=== PATIENT | female | born 1985 | race Caucasian/White ===

== ENCOUNTER 2020-01-28 17:03 | Inpatient (IN) | payer OTHER ==
[~2020-01-28] VITALS: Ht 165.1 cm; Wt 58.5 kg
[2020-01-28 17:04] VITALS: BP 155/98
[2020-01-28] MEDS ORDERED: NACL 0.9% 1,000 ML IV SCH (17:07)
[2020-01-28] MEDS ORDERED: ACETAMINOPHEN 325 MG TAB PO ONE (17:10)
[2020-01-28] MEDS ORDERED: LEVOFLOXACIN 500 MG/D5W PREMIX 100 ML IV ONE (17:10)
[2020-01-28 17:54] LABS: BASOPHILS # (AUTO) 0.1 K/uL (0.00-0.22); BASOPHILS % (AUTO) 0.9 % (0.0-2.0); EOSINOPHILS % (AUTO) 0.2 % (0.0-4.0); HEMATOCRIT 30.1 % (36-48); HEMOGLOBIN 9.8 g/dL (12.0-16.0); LYMPHOCYTES # (AUTO) 1.3 K/uL (2.5-16.5); LYMPHOCYTES % (AUTO) 11.6 % (20.5-51.1); MEAN CORPUSCULAR HEMOGLOBIN 28 pg (27-31); MEAN CORPUSCULAR HGB CONC 33 g/dL (33-37); MEAN CORPUSCULAR VOLUME 86.7 fL (80-94); MONOCYTES # (AUTO) 0.7 K/uL (0.8-1.0); MONOCYTES % (AUTO) 6.2 % (1.7-9.3); NEUTROPHILS # (AUTO) 9.1 K/uL (1.8-7.7); NEUTROPHILS % (AUTO) 81.1 % (42.2-75.2); PLATELET COUNT (AUTO) 465 K/uL (140-450); RED BLOOD CELL COUNT(AUTO) 3.47 MIL/uL (4.20-5.40); RED CELL DISTRIBUTION WIDTH 14.2 % (11.6-13.7); WHITE BLOOD COUNT (AUTO) 11.2 K/uL (4.8-10.8)
[2020-01-28 17:58] LABS: APPEARANCE,URINE SL CLOUDY (CLEAR); BILIRUBIN,URINE NEGATIVE (NEGATIVE); BLOOD, URINE 1+ (NEGATIVE); COLOR,URINE YELLOW (YELLOW); LEUKOCYTE ESTERASE ,URINE NEGATIVE (NEGATIVE); NITRITE, URINE NEGATIVE (NEGATIVE); PH,URINE 5.5 (5.0-9.0); UGLUCOSE 3+ (NEGATIVE)
[2020-01-28 18:05] LABS: PROTHROMBIN TIME 11.1 secs (10.8-13.4)
[2020-01-28 18:13] LABS: RBC,URINE 0-5 /HPF (0-5); WBC,URINE 16-25 (MOD) /HPF (0-5)
[2020-01-28 18:18] LABS: ANION GAP 12.5 (8-16); CARBON DIOXIDE 28.3 mmol/L (21-32); CREATININE 0.9 mg/dL (0.6-1.3); POTASSIUM 3.8 mmol/L (3.5-5.1); TOTAL BILIRUBIN 0.4 mg/dL (0.0-1.0)
[2020-01-28] MEDS ORDERED: KETOROLAC 30 MG/ML VIAL IVP ONE (18:20)
[2020-01-28] MEDS ORDERED: NACL 0.9% 1,000 ML IV ONE (18:20)
[2020-01-28 18:23] LABS: LACTATE DEHYDROGENASE 191 U/L (81-234)
[2020-01-28] MEDS ORDERED: METF1000 PO (18:50)
[2020-01-28] MEDS ORDERED: GABA300C PO (18:50)
[2020-01-28] MEDS ORDERED: TRAM50TA1 PO (18:50)
[2020-01-28] MEDS ORDERED: GLIP10TA3 PO (18:50)
[2020-01-28] MEDS ORDERED: ZOLPIDEM 5 MG TAB PO PRN (22:20)
[2020-01-28] MEDS ORDERED: guaiFENesin DM 200/20 MG-10 ML 10 ML UDC PO PRN (22:20)
[2020-01-28] MEDS ORDERED: ONDANSETRON 4 MG/2 ML VIAL IVP PRN (22:20)
[2020-01-28] MEDS ORDERED: ACETAMINOPHEN 650 MG SUPP RC PRN (22:20)
[2020-01-28] MEDS ORDERED: MAGNESIUM OXIDE 400 MG TAB PO PRN (22:20)
[2020-01-28] MEDS ORDERED: POTASSIUM CHLORIDE 10 MEQ TABER PO PRN (22:20)
[2020-01-28] MEDS ORDERED: ACETAMINOPHEN 325 MG TAB PO PRN (22:20)
[2020-01-28] MEDS ORDERED: AZITHROMYCIN 500 MG in DEXTROSE 5% 250 ML IV SCH (22:20)
[2020-01-28] MEDS ORDERED: AZITHROMYCIN 500 MG INJ VIAL IV ONE (22:48)
[2020-01-29] VITALS: BP 129/79
[2020-01-29 04:00] VITALS: BP 129/70
[2020-01-29] MEDS ORDERED: LORazepam 2 MG/ML VIAL IM/IVP PRN (04:35)
[2020-01-29] MEDS ORDERED: guaiFENesin/CODEINE 100/10MG 5 ML UDC PO PRN (04:35)
[2020-01-29] MEDS ORDERED: DEXTROSE 50% 50 ML SYR IVP PRN (04:35)
[2020-01-29] MEDS ORDERED: ALBUTEROL HFA MDI 90 MCG/ACTUATION 8 GM INH PRN (04:40)
[2020-01-29 06:06] LABS: BASOPHILS % (AUTO) 0.3 % (0.0-2.0); EOSINOPHILS % (AUTO) 0.3 % (0.0-4.0); HEMATOCRIT 30.8 % (36-48); LYMPHOCYTES % (AUTO) 9.3 % (20.5-51.1); MEAN CORPUSCULAR HEMOGLOBIN 28 pg (27-31); MEAN CORPUSCULAR HGB CONC 33 g/dL (33-37); MEAN CORPUSCULAR VOLUME 86.7 fL (80-94); MONOCYTES # (AUTO) 0.6 K/uL (0.8-1.0); MONOCYTES % (AUTO) 5.1 % (1.7-9.3); NEUTROPHILS # (AUTO) 9.4 K/uL (1.8-7.7); PLATELET COUNT (AUTO) 469 K/uL (140-450); RED BLOOD CELL COUNT(AUTO) 3.55 MIL/uL (4.20-5.40); RED CELL DISTRIBUTION WIDTH 14.3 % (11.6-13.7); WHITE BLOOD COUNT (AUTO) 11.1 K/uL (4.8-10.8)
[2020-01-29] MEDS: BLOOD GLUCOSE MONITORING 1 DEV DEV FS SCH ×2 (06:19→12:02)
[2020-01-29] MEDS: INSULIN LISPRO SLIDING SCALE 100 UNITS/ML VIAL SUBQ PRN ×2 (06:20→12:05)
[2020-01-29 06:32] LABS: ALBUMIN 1.9 g/dL (3.4-5.0); ANION GAP 11.5 (8-16); CARBON DIOXIDE 29.6 mmol/L (21-32); CREATININE 0.8 mg/dL (0.6-1.3); MAGNESIUM 1.6 mg/dL (1.8-2.4); POTASSIUM 4.1 mmol/L (3.5-5.1); TOTAL BILIRUBIN 0.5 mg/dL (0.0-1.0)
[2020-01-29 08:00] VITALS: BP 104/62
[2020-01-29] MEDS ORDERED: traMADol 50 MG TAB PO PRN (10:40)
[2020-01-29] MEDS ORDERED: LEVO750T2 PO (10:45)
[2020-01-29] MEDS ORDERED: LACT1CAP81 PO (10:45)
[2020-01-29 12:00] VITALS: BP 120/66
[2020-01-29 13:06] LABS: C-REACTIVE PROTEIN QUANT 45.6 mg/dL (0.0-0.9)
[2020-01-29] MEDS ORDERED: glipiZIDE 10 MG TAB PO SCH (17:00)
[2020-01-29] MEDS ORDERED: GABAPENTIN 300 MG CAP PO SCH (21:00)
[2020-01-30] MEDS ORDERED: ENOXAPARIN 40 MG/0.4 ML SYR SUBQ SCH (09:00)
== END 2020-01-29 12:35 | disposition home or self-care (01) | DRG 720 ==
LOC: MED 17:03 → EEVIPCON 19:54 → MMU 19:54 → MTU 01-29 09:48
PROVIDERS: ADMIT Hospitalist; ATTEND Hospitalist
DX: A41.9 Sepsis, unspecified organism (principal); E11.40 Type 2 diabetes mellitus with diabetic neuropathy, unspecified; Z03.818 Encounter for observation for suspected exposure to other biological agents ruled out; E11.65 Type 2 diabetes mellitus with hyperglycemia; D64.9 Anemia, unspecified; E83.42 Hypomagnesemia; E87.1 Hypo-osmolality and hyponatremia; E44.1 Mild protein-calorie malnutrition; Z79.899 Other long term (current) drug therapy; Z79.84 Long term (current) use of oral hypoglycemic drugs; Z68.21 Body mass index [BMI] 21.0-21.9, adult; N39.0 Urinary tract infection, site not specified; B96.1 Klebsiella pneumoniae [K. pneumoniae] as the cause of diseases classified elsewhere; B96.20 Unspecified Escherichia coli [E. coli] as the cause of diseases classified elsewhere
CPT/HCPCS: 36415; 36600; 71045; 80053; 81001; 82550; 82728; 82803; 82948; 83605; 83615; 83735; 83880; 84484; 85025; 85610; 85730; 86140; 87040; 87081; 87086; 87186; 87804; 93005; 96361; 96365; 96375; 99291; J0456; J1885; J1956; J7030; J7060; U0002

== ENCOUNTER 2020-11-03 22:13 | Emergency (ER) | payer OTHER, SELFPAY ==
[~2020-11-03] VITALS: Ht 165.1 cm; Wt 59.0 kg
[~2020-11-03 22:13] MED LIST: GABA300C PO; GLIP10TA3 PO; LACT1CAP81 PO; LEVO750T2 PO; TRAM50TA1 PO
[2020-11-03 23:30] VITALS: BP 129/89
[2020-11-04 00:06] VITALS: BP 126/89
--- NOTE | 2020-11-04 00:06 | NUR ---
vaginal pain x yesterday. 08/07 pain pt says "i dont if its a boil, abscess but its the size of a soft ball." describes it as pressure and hurts to sit. + BLOOD RED DRAINAGE. NKDA. PMH: DM, ANEMIC, ASTHMA, C/S.
--- NOTE | 2020-11-04 00:10 | NUR ---
PT W/C ASSIST TO ZOIE.
[2020-11-04] MEDS ORDERED: KETOROLAC 60 MG/2 ML VIAL IM ONE (00:55)
--- NOTE | 2020-11-04 02:31 | NUR ---
Female Terminologist accompanied female patient for Pelvic Exam in triage. Pt Tolerated procedure well.
[2020-11-04 02:37] VITALS: BP 126/89
--- NOTE | 2020-11-04 02:37 | NUR ---
Patient discharged with v/s stable. Written and verbal after care instructions given and explained. Patient alert, oriented and verbalized understanding of instructions. Ambulatory with steady gait. All questions addressed prior to discharge. ID band removed. Patient advised to follow up with PMD. Rx of MOTRIN, NORCO, AND KEFLEX given. Patient educated on indication of medication including possible reaction and side effects. Opportunity to ask questions provided and answered.
== END 2020-11-04 02:39 | disposition home or self-care (01) ==
LOC: MED 22:13
DX: L02.214 Cutaneous abscess of groin (principal); N39.0 Urinary tract infection, site not specified; J45.909 Unspecified asthma, uncomplicated; E11.9 Type 2 diabetes mellitus without complications; D64.9 Anemia, unspecified; Z79.899 Other long term (current) drug therapy; Z79.84 Long term (current) use of oral hypoglycemic drugs
CPT/HCPCS: 81002; 81025; 96372; 99283; J1885

== ENCOUNTER 2021-05-05 10:15 | Inpatient (IN) | payer OTHER, SELFPAY ==
[~2021-05-05] VITALS: Ht 165.1 cm; Wt 59.0 kg
--- NOTE | 2021-05-05 | NUR ---
VITAL SIGNS WITHIN NORMAL LIMIT. PATIENT IS RESTING, USING HER CELLPHONE. NO SIGN OF DISTRESS NOTED. PATIENT REPORTS REDUCE TO TOLERABLE LEVEL AT THIS TIME. CALL LIGHT WITHIN REACH. WILL CONTINUE TO MONITOR. Addendum: 05/06/21 at 0105 by Troy Corona RN RN DOCUMENT AT 05/06/21 0000
[2021-05-05 10:43] VITALS: BP 122/73
--- NOTE | 2021-05-05 10:49 | NUR ---
Patient transferred to bed 7 via wheelchair by tech. RN evaluating the patient at bedside.
--- NOTE | 2021-05-05 10:57 | NUR ---
35/F C/O GENERALIZED WEAKNESS, N/V/D, BODY ACHE SINCE LAST NIGHT. PT DENIES ABDOMINAL PAIN OR DYSURIA. ABDOMEN IS SOFT AND NON-TENDER UPON INSPECTION. BLOOD SUGAR 427 UPON TRIAGE. PMH: NEUROPATHY, DM, C SECTION
[2021-05-05] MEDS ORDERED: NACL 0.9% 1,000 ML IV ONE ×2 (11:20→12:10)
[2021-05-05] MEDS ORDERED: MORPHINE SULFATE 4 MG/ML SYR IVP ONE (11:20)
[2021-05-05] MEDS ORDERED: KETOROLAC 30 MG/ML VIAL IVP ONE (11:20)
[2021-05-05] MEDS ORDERED: ONDANSETRON 4 MG/2 ML VIAL IVP ONE (11:20)
--- NOTE | 2021-05-05 11:38 | NUR ---
BLOOD DRAW DURING IV START. BLOOD SAMPLE SENT TO LAB.
[2021-05-05 11:44] LABS: BASOPHILS # (AUTO) 0.1 K/uL (0.00-0.22); BASOPHILS % (AUTO) 0.8 % (0.0-2.0); EOSINOPHILS # (AUTO) 0.1 K/uL (0-0.4); EOSINOPHILS % (AUTO) 0.4 % (0.0-4.0); HEMATOCRIT 37.7 % (36-48); HEMOGLOBIN 12.5 g/dL (12.0-16.0); LYMPHOCYTES # (AUTO) 1.5 K/uL (2.5-16.5); LYMPHOCYTES % (AUTO) 9.5 % (20.5-51.1); MEAN CORPUSCULAR HEMOGLOBIN 26 pg (27-31); MEAN CORPUSCULAR HGB CONC 33 g/dL (33-37); MEAN CORPUSCULAR VOLUME 79.6 fL (80-94); MONOCYTES # (AUTO) 0.8 K/uL (0.8-1.0); MONOCYTES % (AUTO) 4.7 % (1.7-9.3); NEUTROPHILS # (AUTO) 13.8 K/uL (1.8-7.7); NEUTROPHILS % (AUTO) 84.6 % (42.2-75.2); PLATELET COUNT (AUTO) 405 K/uL (140-450); RED BLOOD CELL COUNT(AUTO) 4.73 MIL/uL (4.20-5.40); RED CELL DISTRIBUTION WIDTH 13.7 % (11.6-13.7); WHITE BLOOD COUNT (AUTO) 16.3 K/uL (4.8-10.8)
--- NOTE | 2021-05-05 11:44 | NUR ---
REPORT GIVEN TO IRVIN COPPOLA FOR CONTINUITY OF CARE
[2021-05-05 12:00] LABS: ALBUMIN 3.3 g/dL (3.4-5.0); ANION GAP 22.2 (8-16); ASPARTATE AMINOTRANSFERASE 8 U/L (15-37); CARBON DIOXIDE 25.1 mmol/L (21-32); CHLORIDE 95 mmol/L (98-107); CREATININE 0.8 mg/dL (0.6-1.3); GFR ARICAN-AMERICAN 104 mL/min (>90); POTASSIUM 4.3 mmol/L (3.5-5.1); SALICYLATE 3.6 mg/dL (2.8-20.0); SODIUM SERUM 138 mmol/L (136-145); TOTAL BILIRUBIN 0.5 mg/dL (0.0-1.0); UREA NITROGEN, BLOOD 11 mg/dL (7-18)
[2021-05-05 12:04] LABS: APPEARANCE,URINE HAZY (CLEAR); BILIRUBIN,URINE NEGATIVE (NEGATIVE); BLOOD, URINE TRACE-I (NEGATIVE); COLOR,URINE YELLOW (YELLOW); LEUKOCYTE ESTERASE ,URINE TRACE (NEGATIVE); NITRITE, URINE POSITIVE (NEGATIVE); UGLUCOSE 3+ (NEGATIVE)
[2021-05-05 12:07] LABS: GLUCOSE 413 mg/dL (74-106)
[2021-05-05] MEDS ORDERED: INSULIN REGULAR, HUMAN 100 UNIT/ML VIAL IVP ONE (12:10)
[2021-05-05 12:24] LABS: BARBITURATE, URINE NEGATIVE ng/ml (NEG <=200); BENZODIAZEPINE, URINE NEGATIVE ng/mL (NEG <=200); CANNABINOID, URINE NEGATIVE ng/mL (NEG <=50); COCAINE, URINE NEGATIVE ng/mL (NEG <=300); OPIATE, URINE NEGATIVE ng/mL (NEG <=2000); PHENCYCLIDINE SCREEN,URINE NEGATIVE ng/mL (NEG <=25)
[2021-05-05 12:25] LABS: RBC,URINE 0-5 /HPF (0-5)
[2021-05-05] MEDS ORDERED: HYDROcodone/APAP 5/325 MG 1 TAB TAB PO ONE (12:30)
[2021-05-05 12:31] LABS: ACETAMINOPHEN < 0.5 ug/ml (10-30)
[2021-05-05] MEDS ORDERED: HYDROcodone/APAP 5/325 MG 1 TAB TAB ONE (12:35)
--- NOTE | 2021-05-05 12:40 | NUR ---
Dr. Pena is reevaluating the patient at bedside.
[2021-05-05] MEDS ORDERED: cefTRIAXone 1,000 MG VIAL ONE (13:38)
--- NOTE | 2021-05-05 13:50 | NUR ---
Patient taken to CT scan via wheelchair by tech.
--- NOTE | 2021-05-05 13:57 | NUR ---
Patient returned from CT scan.
[2021-05-05] MEDS ORDERED: ZOLPIDEM 5 MG TAB PO PRN (14:00)
[2021-05-05] MEDS ORDERED: MAGNESIUM OXIDE 400 MG TAB PO PRN (14:00)
[2021-05-05] MEDS ORDERED: MAG SULF 2000 MG/WATER PREMIX 50 ML IV PRN (14:00)
[2021-05-05] MEDS ORDERED: POTASSIUM CHLORIDE 10 MEQ TABER PO PRN (14:00)
[2021-05-05] MEDS: NACL 0.9% 1,000 ML IV SCH (14:00)
[2021-05-05] MEDS ORDERED: KCL 20 MEQ/WATER INJ PREMIX 200 ML IV PRN (14:00)
[2021-05-05] MEDS ORDERED: ACETAMINOPHEN 325 MG TAB PO PRN (14:00)
[2021-05-05] MEDS: MORPHINE SULFATE 4 MG/ML SYR IVP PRN ×2 (16:02→22:28)
--- NOTE | 2021-05-05 16:55 | NUR ---
RECEIVED REPORT FROM IRVIN COPPOLA FOR CONTINUITY OF CARE
--- NOTE | 2021-05-05 18:02 | NUR ---
PT IS CRYING AND SCREAMING BECAUSE OF PAIN. PER PT, "MORPHINE IS NOT WORKING, AND I WANT MORE MEDICATION." PT IS REQUESTING MORE MEDICATION, FOLLOWED PRN PROTOCOL.
[2021-05-05] MEDS: HYDROcodone/APAP 5/325 MG 1 TAB TAB PO PRN ×2 (18:11→19:54)
--- NOTE | 2021-05-05 18:17 | NUR ---
RECEIVED A CALL FROM DR. HADDAD, REGARDING PATIENT'S PAIN. PER DR. HADDAD, GIVE ANOTHER NORCO 5MG TO PATIENT. PT GIVEN MEDICATION AT THIS TIME. ALL NEEDS MET.
--- NOTE | 2021-05-05 19:40 | NUR ---
Patient will be admitted to care of DR. HADDAD. Admited to [facility]. Will go to room 116. Belongings list completed. Report to MARVIN.
--- NOTE | 2021-05-05 19:40 | NUR ---
RECEIVED PHONE REPORT FROM ER NURSE, WAITING PATIENT TRANSFER TO UNIT.
[2021-05-05 19:55] VITALS: BP 108/69
--- NOTE | 2021-05-05 19:55 | NUR ---
RECEIVED PATIENT TO ROOM 116. CC GEN WEAKNESS WITH NAUSEA, VOMITING, AND DIARRHEA. DX UTI, NEW ONSET DM. A/A/O X4. RESPIRATORY EVEN AND UNLABORED, ROOM AIR, LUNG SOUNDS CLEAR TO AUSCULTATE. BOWEL SOUND ACTIVE TO 4 QUADRANTS. ABDOMEN SOFT, NON TENDER, NON DISTENDED. SKIN WARM, DRY, NON DIAPHORETIC. IV ON LEFT AC 20G, INTACT AND PATENT, IS INFUSING FLUID. PATIENT DENIES ANY NAUSEA OR VOMITING AT THIS TIME. REPORT HAVING PAIN 5/10 ON HER BILATERAL LEGS BECAUSE OF HX NEUROPATHY, PAIN TOLERABLE. MRSA COLLECTED. ORIENTED TO ROOM AND UNIT ROUTINE. PLAN OF CARE DISCUSSED WITH PATIENT AND FAMILY, VERBALIZED UNDERSTANDING. CALL LIGHT WITHIN REACH. WILL CONTINUE TO MONITOR.
--- NOTE | 2021-05-05 22:28 | NUR ---
RESPONDED TO PATIENT CALL LIGHT, PATIENT IS CRYING, COMPLAINS OF PAIN 10/10 ON HER BILATERAL LEGS. BP 118/83, HR 109. PRN MEDICATION MORPHINE GIVEN WITH EDUCATION, PATIENT VERBALIZED UNDERSTANDING. PATIENT TOLERATED WELL. CALL LIGHT WITHIN REACH. WILL CONTINUE TO MONITOR.
[2021-05-05] MEDS: ONDANSETRON 4 MG/2 ML VIAL IVP PRN (23:10)
--- NOTE | 2021-05-05 23:10 | NUR ---
PATIENT VOMITED THE CLEAR LIQUID, COMPLAINS OF NAUSEA. ZOFRAN PRN GIVEN WITH EDUCATION. PATIENT VERBALIZED UNDERSTANDING. PATIENT TOLERATED WELL. CALL LIGHT WITHIN REACH. WILL CONTINUE TO MONITOR.
[2021-05-06] VITALS: BP 114/79
--- NOTE | 2021-05-06 02:00 | NUR ---
ROUND CHECK. PATIENT IS AWAKE, USING HER CELL PHONE, HELPING PATIENT TO GO TO BATHROOM. PATIENT TOLERATED WELL. NO SIGN OF DISTRESS. WILL CONTINUE TO MONITOR.
[2021-05-06] MEDS: NACL 0.9% 1,000 ML IV SCH ×2 (03:04→04:30)
[2021-05-06 04:00] VITALS: BP 104/65
--- NOTE | 2021-05-06 04:00 | NUR ---
VITAL SIGN WITHIN NORMAL LIMIT. PATIENT IS RESTING IN BED, NO SIGN OF RESPIRATORY DISTRESS NOTED. CALL LIGHT WITHIN REACH. WILL CONTINUE TO MONITOR.
--- NOTE | 2021-05-06 06:00 | NUR ---
ROUND CHECK. PATIENT IS SLEEPING, CHEST RISE AND FALL, NO SIGN OF DISTRESS. CALL LIGHT WITHIN REACH. WILL CONTINUE TO MONITOR.
[2021-05-06 06:24] LABS: BASOPHILS # (AUTO) 0.1 K/uL (0.00-0.22); BASOPHILS % (AUTO) 0.7 % (0.0-2.0); EOSINOPHILS # (AUTO) 0.3 K/uL (0-0.4); EOSINOPHILS % (AUTO) 2.6 % (0.0-4.0); HEMATOCRIT 29.9 % (36-48); HEMOGLOBIN 10.1 g/dL (12.0-16.0); LYMPHOCYTES # (AUTO) 2.7 K/uL (2.5-16.5); LYMPHOCYTES % (AUTO) 25.7 % (20.5-51.1); MEAN CORPUSCULAR HEMOGLOBIN 27 pg (27-31); MEAN CORPUSCULAR HGB CONC 34 g/dL (33-37); MONOCYTES # (AUTO) 0.7 K/uL (0.8-1.0); NEUTROPHILS # (AUTO) 6.8 K/uL (1.8-7.7); PLATELET COUNT (AUTO) 324 K/uL (140-450); RED BLOOD CELL COUNT(AUTO) 3.69 MIL/uL (4.20-5.40); RED CELL DISTRIBUTION WIDTH 13.7 % (11.6-13.7); WHITE BLOOD COUNT (AUTO) 10.6 K/uL (4.8-10.8)
--- NOTE | 2021-05-06 07:25 | NUR ---
ENDORSED PATIENT TO AM NURSE FOR CONTINUITY OF CARE. PATIENT STABLE.
--- NOTE | 2021-05-06 07:30 | NUR ---
RECEIVED REPORT FROM SEISMIC ENGINEER. AOX4. PT IN BED, NO C/O PAIN, NO S/S OF DISTRESS, NO SOB AT HIS TIME. PT ON ROOM AIR. SR ON TELE MONITOR. SKIN WARM TO TOUCH. IV LINE LAC 20G ON RUNNING NS AT 80CC/HR. SKIN INTACT. KEPT CLEAN AND DRY. CALL LIGHT WITHIN REACH, WILL CONTINUE TO MONITOR
[2021-05-06 08:00] VITALS: BP 123/64
--- NOTE | 2021-05-06 08:55 | NUR ---
PATIENT HAS BEEN SCREENED AND CATEGORIZED HIGH NUTRITION RISK. PATIENT WILL BE SEEN WITHIN 1-2 DAYS OF ADMISSION. 05/06/21-05/07/21 RECEIVED FNS REFERRAL FOR NEWLY DIAGNOSED DIABETES [address]
[2021-05-06] MEDS ORDERED: ENOXAPARIN 40 MG/0.4 ML SYR SUBQ SCH (09:00)
--- NOTE | 2021-05-06 09:15 | NUR ---
DUE MORNING MEDS GIVEN
[2021-05-06] MEDS: ONDANSETRON 4 MG/2 ML VIAL IVP PRN (09:30)
--- NOTE | 2021-05-06 10:40 | NUR ---
BLOOD SUGAR 217
[2021-05-06] MEDS: MORPHINE SULFATE 4 MG/ML SYR IVP PRN (10:53)
--- NOTE | 2021-05-06 10:58 | NUR ---
GAVE REPORT TO HERSON COPPOLA FOR CONTINUITY OF CARE
--- NOTE | 2021-05-06 10:59 | NUR ---
RECEIVED PATIENT REPORT FROM ABDON JAMESON FOR CONTINUITY OF CARE.
[2021-05-06] MEDS ORDERED: INSULIN LISPRO SLIDING SCALE 100 UNITS/ML VIAL SUBQ PRN (11:00)
[2021-05-06] MEDS ORDERED: BLOOD GLUCOSE MONITORING 1 DEV DEV FS SCH (11:30)
--- NOTE | 2021-05-06 12:10 | NUR ---
ALL SCHEDULED MEDICATIONS GIVEN. PT IS STABLE. NO DISTRESS NOTED. WILL CONTINUE TO MONITOR.
[2021-05-06 13:00] LABS: ALBUMIN 2.5 g/dL (3.4-5.0); ANION GAP 8.4 (8-16); CARBON DIOXIDE 26.1 mmol/L (21-32); CREATININE 0.6 mg/dL (0.6-1.3); POTASSIUM 3.5 mmol/L (3.5-5.1); TOTAL BILIRUBIN 0.3 mg/dL (0.0-1.0)
[2021-05-06] MEDS ORDERED: INSU100S22 SUBQ (13:58)
[2021-05-06] MEDS ORDERED: CEFU500T73 PO (14:00)
[2021-05-06 14:23] VITALS: BP 123/64
--- NOTE | 2021-05-06 14:30 | NUR ---
ENDORSED DISCHARGE INSTRUCTIONS TO PATIENT. PATIENT VERBALIZED UNDERSTANDING AND SIGNED THE DISCHARGE FORMS.
--- NOTE | 2021-05-06 14:45 | NUR ---
PATIENT DISCHARGED OFF THE UNIT. IV CATH AND ID WRISTBAND REMOVED. FAMILY PICKED UP PATIENT IN THE THEIR ROOM. PT WAS STABLE PRIOR TO DISCHARGE.
--- NOTE | 2021-05-06 15:47 | NUR ---
DC PLANNING: SPOKE WITH PATIENT AT BEDSIDE. LIVES IN A SECOND STORY APARTMENT WITH STAIR ACCESS. HAS NEUROPATHY AND OCCASIONALLY REQUIRES ASSISTANCE WITH ADL'S, SISTER IN LAW IS AVAILABLE FOR TIS. SEE NADYA MANAGEMENT DOCTOR AT [facility] MONTHLY FOR MANAGEMENT OF HER NEUROPATHY. NO NEEDS IDENTIFIED, CM WILL CONTINUE TO FOLLOW.
== END 2021-05-06 14:45 | disposition home or self-care (01) | DRG 720 ==
LOC: MED 10:15 → MTU 14:03 → EEVIPCON 14:03 → MTU 18:34
PROVIDERS: ADMIT Internal Medicine; ATTEND Internal Medicine
DX: A41.9 Sepsis, unspecified organism (principal); E11.40 Type 2 diabetes mellitus with diabetic neuropathy, unspecified; E11.65 Type 2 diabetes mellitus with hyperglycemia; N39.0 Urinary tract infection, site not specified; J45.909 Unspecified asthma, uncomplicated; Z20.822 Contact with and (suspected) exposure to COVID-19; Z80.8 Family history of malignant neoplasm of other organs or systems; Z83.3 Family history of diabetes mellitus; Z98.891 History of uterine scar from previous surgery
CPT/HCPCS: 36415; 80053; 80305; 81001; 83036; 83605; 85025; 87040; 87081; 87086; 96361; 96365; 96375; 99291; G0480; G0482; J0696; J1650; J1815; J1885; J2270; J2405; J7060

== ENCOUNTER 2021-05-12 01:04 | Emergency (ER) | payer OTHER, SELFPAY ==
[~2021-05-12] VITALS: Ht 165.1 cm; Wt 57.6 kg
[~2021-05-12 01:04] MED LIST changes: +CEFU500T73 PO; -GLIP10TA3 PO; +INSU100S22 SUBQ; -LACT1CAP81 PO; -LEVO750T2 PO
[2021-05-12 01:13] VITALS: BP 147/87
--- NOTE | 2021-05-12 02:02 | NUR ---
PATIENT AMBULATED TO BED 6 WITH STEADY GAIT.
--- NOTE | 2021-05-12 02:05 | NUR ---
35/F PT C/O NEUROPATHY BILATERAL FOOT PAIN 10/10 X 5 HOURS TOOK TRAMADOL, OUT OF HER GABAPENTIN MED HX: DM, NEUROPATHY NKA
--- NOTE | 2021-05-12 02:48 | NUR ---
ERMD AT BEDSIDE FOR MEDICAL EVALUATION.
[2021-05-12] MEDS ORDERED: KETOROLAC 30 MG/ML VIAL IM ONE (02:55)
[2021-05-12] MEDS ORDERED: GABAPENTIN 300 MG CAP PO ONE (02:55)
[2021-05-12 03:05] VITALS: BP 138/78
--- NOTE | 2021-05-12 03:05 | NUR ---
Patient discharged with v/s stable. Written and verbal after care instructions given and explained. Patient verbalized understanding. Ambulatory with steady gait. All questions addressed prior to discharge. Advised to follow up with PMD.
== END 2021-05-12 03:05 | disposition home or self-care (01) ==
LOC: MED 01:04
DX: E10.42 Type 1 diabetes mellitus with diabetic polyneuropathy (principal); J45.909 Unspecified asthma, uncomplicated; Z79.899 Other long term (current) drug therapy
CPT/HCPCS: 82948; 96372; 99283; J1885

== ENCOUNTER 2021-05-19 01:38 | Emergency (ER) | payer OTHER ==
[~2021-05-19] VITALS: Ht 162.6 cm; Wt 59.9 kg
[2021-05-19 02:00] VITALS: BP 155/102
--- NOTE | 2021-05-19 02:50 | NUR ---
TO BED AMBULATORY
--- NOTE | 2021-05-19 03:05 | NUR ---
PT. IS A 35 Y/O FEMALE THAT CAME INTO ED WITH C/O OF FOOT PAIN. PT. STATES THAT THE PAIN STARTED IN THE MORNING. DENIES N/V/D. PT STATES IT RADIATES THROUGHOUT HER LEGS DUE TO "NEUROPATHY." PT. RATES PAIN AT 10/10 ON THE PAIN SCALE AT THIS TIME. DENIES N/V/D; SKIN IS PINK/WARM/DRY; AAOX4 WITH EVEN AND STEADY GAIT; LUNGS CLEAR BL; HR EVEN AND REGULAR; PT DENIES ANY FEVER, CP, SOB, OR COUGH AT THIS TIME; VSS; PATIENT POSITIONED FOR COMFORT; HOB ELEVATED; BEDRAILS UP X2; BED DOWN. ER MD MADE AWARE OF PT STATUS.
--- NOTE | 2021-05-19 03:05 | NUR ---
KATIE FENG AT BEDSIDE FOR MEDICAL EXAMINATION
[2021-05-19] MEDS ORDERED: diphenhydrAMINE 50 MG/ML VIAL IM ONE (03:10)
[2021-05-19] MEDS ORDERED: KETOROLAC 15 MG/ML VIAL IM ONE (03:10)
[2021-05-19] MEDS ORDERED: MORPHINE SULFATE 4 MG/ML SYR IM ONE (03:10)
[2021-05-19 03:38] VITALS: BP 155/102
== END 2021-05-19 03:38 | disposition home or self-care (01) ==
LOC: MED 01:38
DX: M79.2 Neuralgia and neuritis, unspecified (principal); M79.604 Pain in right leg; M79.605 Pain in left leg; J45.909 Unspecified asthma, uncomplicated; E11.9 Type 2 diabetes mellitus without complications
CPT/HCPCS: 96372; 99284; J1200; J1885; J2270

== ENCOUNTER 2021-06-20 12:59 | Emergency (ER) | payer OTHER ==
[~2021-06-20] VITALS: Ht 165.1 cm; Wt 54.9 kg
[2021-06-20 13:09] VITALS: BP 120/78
--- NOTE | 2021-06-20 13:12 | NUR ---
to lobby pending bed in main ED, in stable condition.
[2021-06-20] MEDS ORDERED: KETOROLAC 30 MG/ML VIAL IM ONE (14:05)
[2021-06-20] MEDS ORDERED: GABA600T11 PO (14:05)
[2021-06-20 14:49] VITALS: BP 120/78
--- NOTE | 2021-06-20 14:49 | NUR ---
PT SEEN AND DISCHARGED BY PAC. PHAN
== END 2021-06-20 14:49 | disposition home or self-care (01) ==
LOC: MED 12:59
DX: E11.40 Type 2 diabetes mellitus with diabetic neuropathy, unspecified (principal); J45.909 Unspecified asthma, uncomplicated; Z76.0 Encounter for issue of repeat prescription; Z79.4 Long term (current) use of insulin; Z79.899 Other long term (current) drug therapy
CPT/HCPCS: 96372; 99283; J1885

== ENCOUNTER 2021-11-05 11:28 | Emergency (ER) | payer OTHER ==
[~2021-11-05] VITALS: Ht 165.1 cm; Wt 59.0 kg
[~2021-11-05 11:28] MED LIST changes: +GABA600T11 PO
[2021-11-05 11:50] VITALS: BP 132/72
[2021-11-05] MEDS ORDERED: KETOROLAC 30 MG/ML VIAL IM ONE (12:20)
[2021-11-05] MEDS ORDERED: GABA300C PO (12:35)
[2021-11-05] MEDS ORDERED: TRAM50TA1 PO (12:35)
[2021-11-05 12:58] VITALS: BP 134/97
--- NOTE | 2021-11-05 12:59 | NUR ---
Patient discharged with v/s stable. Written and verbal after care instructions given and explained. Patient alert, oriented and verbalized understanding of instructions. Ambulatory with steady gait. All questions addressed prior to discharge. ID band removed. Patient advised to follow up with PMD. Rx of GABAPENTIN AND TRAMADOL given. Patient educated on indication of medication including possible reaction and side effects. Opportunity to ask questions provided and answered.
== END 2021-11-05 12:58 | disposition home or self-care (01) ==
LOC: MED 11:28
DX: M79.2 Neuralgia and neuritis, unspecified (principal); G89.29 Other chronic pain; I10 Essential (primary) hypertension; Z76.0 Encounter for issue of repeat prescription; J45.909 Unspecified asthma, uncomplicated; E11.9 Type 2 diabetes mellitus without complications
CPT/HCPCS: 96372; 99283; J1885

== ENCOUNTER 2021-11-06 08:05 | Emergency (ER) | payer OTHER ==
[~2021-11-06] VITALS: Ht 165.1 cm; Wt 54.4 kg
[2021-11-06 08:22] VITALS: BP 147/81
[2021-11-06] MEDS ORDERED: BLOOD GLUCOSE MONITORING 1 DEV DEV FS ONE (08:25)
[2021-11-06] MEDS ORDERED: NACL 0.9% 1,000 ML IV ONE (08:25)
--- NOTE | 2021-11-06 08:38 | NUR ---
PT AMBULATED TO CHAIR A.
--- NOTE | 2021-11-06 08:40 | NUR ---
BIBA C/O DIARRHEA X YESTERDAY, 6/10 LEFT CHEST PAIN RADIATING TO LEFT ARM X 4 HOURS AGO. PER EMS BLOOD SUGAR 489. PMH:DM
[2021-11-06] MEDS ORDERED: LORazepam 0.5 MG TAB PO ONE (08:50)
--- NOTE | 2021-11-06 08:52 | NUR ---
COVID WILFREDO SWAB DONE.
[2021-11-06 09:11] LABS: BASOPHILS # (AUTO) 0.1 K/uL (0.00-0.22); BASOPHILS % (AUTO) 0.8 % (0.0-2.0); EOSINOPHILS # (AUTO) 0.1 K/uL (0-0.4); EOSINOPHILS % (AUTO) 0.7 % (0.0-4.0); HEMATOCRIT 38.7 % (36-48); HEMOGLOBIN 13.1 g/dL (12.0-16.0); LYMPHOCYTES # (AUTO) 1.7 K/uL (2.5-16.5); LYMPHOCYTES % (AUTO) 12.8 % (20.5-51.1); MEAN CORPUSCULAR HEMOGLOBIN 28 pg (27-31); MEAN CORPUSCULAR HGB CONC 34 g/dL (33-37); MEAN CORPUSCULAR VOLUME 82.8 fL (80-94); MONOCYTES # (AUTO) 0.5 K/uL (0.8-1.0); NEUTROPHILS # (AUTO) 10.9 K/uL (1.8-7.7); NEUTROPHILS % (AUTO) 81.7 % (42.2-75.2); PLATELET COUNT (AUTO) 335 K/uL (140-450); RED BLOOD CELL COUNT(AUTO) 4.67 MIL/uL (4.20-5.40); RED CELL DISTRIBUTION WIDTH 13.7 % (11.6-13.7); WHITE BLOOD COUNT (AUTO) 13.3 K/uL (4.8-10.8)
[2021-11-06 09:46] LABS: ALBUMIN 3.5 g/dL (3.4-5.0); CARBON DIOXIDE 22.3 mmol/L (21-32); CREATININE 0.8 mg/dL (0.6-1.3); POTASSIUM 4.3 mmol/L (3.5-5.1); TOTAL BILIRUBIN 0.3 mg/dL (0.0-1.0)
[2021-11-06 10:10] VITALS: BP 147/81
--- NOTE | 2021-11-06 10:10 | NUR ---
Patient does not wish to proceed with medical care recommended by DR OSORIO. Patient given information related to possible complications, up to and including , which could occur as a result of leaving hospital at this time. Patient verbalizes understanding of risks involved leaving against medical advice. Patient has signed AMA form.
[2021-11-06 13:44] LABS: APPEARANCE,URINE HAZY (CLEAR); BILIRUBIN,URINE NEGATIVE (NEGATIVE); BLOOD, URINE NEGATIVE (NEGATIVE); COLOR,URINE YELLOW (YELLOW); LEUKOCYTE ESTERASE ,URINE TRACE (NEGATIVE); NITRITE, URINE NEGATIVE (NEGATIVE); PH,URINE 5.5 (5.0-9.0); UGLUCOSE 3+ (NEGATIVE)
[2021-11-06 14:18] LABS: RBC,URINE NONE SEEN /HPF (0-5); YEAST,URINE Few /HPF (None Seen)
== END 2021-11-06 09:56 | disposition left against medical advice (07) ==
LOC: MED 08:05
DX: E11.65 Type 2 diabetes mellitus with hyperglycemia (principal); E87.2 Acidosis; Z20.822 Contact with and (suspected) exposure to COVID-19
CPT/HCPCS: 36415; 71045; 80053; 81001; 82550; 83605; 83880; 84484; 85025; 85379; 87040; 87086; 93005; 99285; J7030

== ENCOUNTER 2023-05-21 17:19 | Inpatient (IN) | payer OTHER ==
[~2023-05-21] VITALS: Ht 165.1 cm; Wt 56.7 kg
[~2023-05-21 17:19] MED LIST changes: +TRAM-748 PO; -TRAM50TA1 PO
[2023-05-21 17:34] VITALS: BP 139/93; PULSE 120; RESP 20; TEMP 98.3
[2023-05-21] MEDS ORDERED: KETOROLAC 15 MG/ML VIAL IVP ONE (18:10)
[2023-05-21] MEDS ORDERED: NACL 0.9% 2,000 ML IV ONE (18:10)
[2023-05-21] MEDS ORDERED: INSULIN REGULAR, HUMAN 100 UNIT/ML VIAL SUBQ ONE (18:10)
--- NOTE | 2023-05-21 18:12 | NUR ---
37 Y/0 F PATIENT PRESENTS TO ED WITH NUROPATHY FEET PAIN AND UNCONTROLLED DM 2. PT STATES SHE HAS NOT TAKEN HER DM MEDICATION IN 2 YEARS. PT HAS AN APPOINTMENT ON THE 28 OF THIS MONTH; PT STATES SHE HAS HAD NAUSEA BUT DENIES VOMITING AND DIARREHA ; SKIN IS PINK/WARM/DRY; AAOX4 WITH EVEN AND STEADY GAIT; LUNGS CLEAR BL; HR EVEN AND REGULAR; PT DENIES ANY FEVER, CP, SOB, OR COUGH AT THIS TIME; PATIENT STATES PAIN OF 10/10 AT THIS TIME; VSS; PATIENT POSITIONED FOR COMFORT; HOB ELEVATED; BEDRAILS UP X2; CALL LIGHT WITHIN REACH; BED DOWN. ER MD MADE AWARE OF PT STATUS. DM2 NUEROPATHY OF LOWER EXTREMITIES HTN ALLERGIES IODINE SHRIMP
[2023-05-21 18:42] LABS: BASOPHILS # (AUTO) 0.1 K/uL (0.00-0.22); BASOPHILS % (AUTO) 1.1 % (0.0-2.0); EOSINOPHILS # (AUTO) 0.1 K/uL (0-0.4); EOSINOPHILS % (AUTO) 1.2 % (0.0-4.0); HEMATOCRIT 39.6 % (36-48); HEMOGLOBIN 13.4 g/dL (12.0-16.0); LYMPHOCYTES # (AUTO) 1.9 K/uL (2.5-16.5); LYMPHOCYTES % (AUTO) 22.2 % (20.5-51.1); MEAN CORPUSCULAR HEMOGLOBIN 28 pg (27-31); MEAN CORPUSCULAR HGB CONC 34 g/dL (33-37); MEAN CORPUSCULAR VOLUME 83.7 fL (80-94); MONOCYTES # (AUTO) 0.6 K/uL (0.8-1.0); MONOCYTES % (AUTO) 6.3 % (1.7-9.3); NEUTROPHILS # (AUTO) 6.1 K/uL (1.8-7.7); NEUTROPHILS % (AUTO) 69.2 % (42.2-75.2); PLATELET COUNT (AUTO) 322 K/uL (140-450); RED BLOOD CELL COUNT(AUTO) 4.73 MIL/uL (4.20-5.40); RED CELL DISTRIBUTION WIDTH 13.9 % (11.6-13.7); WHITE BLOOD COUNT (AUTO) 8.8 K/uL (4.8-10.8)
[2023-05-21 19:01] LABS: ALBUMIN 3.6 g/dL (3.4-5.0); ANION GAP 10.2 (8-16); CREATININE 0.9 mg/dL (0.6-1.3); POTASSIUM 4.2 mmol/L (3.5-5.1); TOTAL BILIRUBIN 0.3 mg/dL (0.0-1.0)
--- NOTE | 2023-05-21 19:15 | NUR ---
RECEIVED REPORT FROM LAMONT FRAZIER. PT LYING IN BED AND STATES PAIN 06/07. PT PENDING ADM. CALL LIGHT WITHIN REACH.
[2023-05-21 19:16] VITALS: O2SAT 93
--- NOTE | 2023-05-21 19:22 | NUR ---
RELEASED CARE TO FREDDIE ROUSSEAU, AND FREDDIE DAVIS.
[2023-05-21 19:26] VITALS: O2SAT 93
[2023-05-21] MEDS ORDERED: KETOROLAC 15 MG/ML VIAL ONE (20:09)
[2023-05-21] MEDS ORDERED: TRAM100C PO (20:23)
[2023-05-21] MEDS ORDERED: GABA400C PO (20:23)
--- NOTE | 2023-05-21 21:00 | NUR ---
PT IS PENDING ADMISSION. MED RECONCILE COMPLETED
[2023-05-21] MEDS: NACL 0.9% 1,000 ML IV SCH (22:15)
[2023-05-21] MEDS ORDERED: INSULIN LANTUS 100 UNITS/ML 10 ML VIAL SUBQ SCH (22:15)
[2023-05-21] MEDS ORDERED: ACETAMINOPHEN 325 MG TAB PO PRN (22:15)
[2023-05-21] MEDS ORDERED: ONDANSETRON 4 MG/2 ML VIAL IVP PRN (22:15)
[2023-05-21] MEDS ORDERED: DEXTROSE 50% 50 ML SYR IVP PRN (22:15)
[2023-05-21] MEDS ORDERED: traMADol 50 MG TAB PO PRN (22:20)
[2023-05-21 22:45] VITALS: PULSE 109; RESP 20; O2SAT 100
[2023-05-21 22:48] VITALS: BP 127/87; PULSE 109; RESP 20; TEMP 97.6; O2SAT 100
--- NOTE | 2023-05-21 22:48 | NUR ---
Patient will be admitted to care of DR. ALMANZA. Admited to [facility]. Will go to room 125-A. Belongings list completed. Report to ABDON LOPEZ.
[2023-05-21] MEDS: HYDROcodone/APAP 5/325 MG 1 TAB TAB PO PRN (23:35)
[2023-05-22 04:00] VITALS: BP 134/88; PULSE 93; RESP 22; TEMP 98.5; O2SAT 99
[2023-05-22] MEDS: HYDROcodone/APAP 5/325 MG 1 TAB TAB PO PRN ×5 (04:21→23:12)
[2023-05-22] MEDS ORDERED: traMADol 50 MG TAB PO PRN (05:00)
[2023-05-22] MEDS ORDERED: traMADol 50 MG TAB ONE (05:05)
[2023-05-22 05:14] LABS: BASOPHILS # (AUTO) 0.1 K/uL (0.00-0.22); EOSINOPHILS # (AUTO) 0.2 K/uL (0-0.4); EOSINOPHILS % (AUTO) 2.3 % (0.0-4.0); HEMOGLOBIN 11.8 g/dL (12.0-16.0); LYMPHOCYTES # (AUTO) 4.2 K/uL (2.5-16.5); LYMPHOCYTES % (AUTO) 43.2 % (20.5-51.1); MEAN CORPUSCULAR HEMOGLOBIN 29 pg (27-31); MEAN CORPUSCULAR HGB CONC 35 g/dL (33-37); MEAN CORPUSCULAR VOLUME 83.4 fL (80-94); MONOCYTES # (AUTO) 0.8 K/uL (0.8-1.0); MONOCYTES % (AUTO) 7.9 % (1.7-9.3); NEUTROPHILS # (AUTO) 4.4 K/uL (1.8-7.7); NEUTROPHILS % (AUTO) 45.6 % (42.2-75.2); PLATELET COUNT (AUTO) 264 K/uL (140-450); RED BLOOD CELL COUNT(AUTO) 4.08 MIL/uL (4.20-5.40); RED CELL DISTRIBUTION WIDTH 13.6 % (11.6-13.7); WHITE BLOOD COUNT (AUTO) 9.7 K/uL (4.8-10.8)
[2023-05-22 05:36] LABS: ALBUMIN 2.9 g/dL (3.4-5.0); ANION GAP 7.2 (8-16); CARBON DIOXIDE 30.6 mmol/L (21-32); CREATININE 0.8 mg/dL (0.6-1.3); POTASSIUM 3.8 mmol/L (3.5-5.1); TOTAL BILIRUBIN 0.2 mg/dL (0.0-1.0)
[2023-05-22] MEDS: BLOOD GLUCOSE MONITORING 1 DEV DEV FS SCH ×4 (06:23→21:17)
[2023-05-22] MEDS: INSULIN LISPRO SLIDING SCALE 100 UNITS/ML VIAL SUBQ PRN ×4 (06:47→21:17)
--- NOTE | 2023-05-22 07:20 | NUR ---
RECEIVED REPORT FROM CLASS 1 OWNER OPERATOR NURSE FOR CONTINUITY OF CARE. PT IS STABLE.
[2023-05-22 08:00] VITALS: BP 122/85; PULSE 91; PULSE 96; RESP 16; TEMP 97.9; O2SAT 96
[2023-05-22] MEDS: GABAPENTIN 300 MG CAP PO SCH ×3 (08:12→16:50)
[2023-05-22] MEDS: ENOXAPARIN 40 MG/0.4 ML SYR SUBQ SCH (08:15)
--- NOTE | 2023-05-22 09:07 | NUR ---
PATIENT HAS BEEN SCREENED AND CATEGORIZED HIGH NUTRITION RISK. PATIENT WILL BE SEEN WITHIN 1-2 DAYS OF ADMISSION. 05/22/23-05/23/[address]
[2023-05-22] MEDS: NACL 0.9% 1,000 ML IV SCH ×2 (10:45→23:03)
--- NOTE | 2023-05-22 14:53 | NUR ---
05/22/23 RD INITIAL ASSESSMENT COMPLETED PLEASE REFER TO NUTRITION ASSESSMENT UNDER CARE ACTIVITY FOR ESTIMATED NUTRITIONAL NEEDS. 1. CONTINUE CCHO 60 GRAM DIET TOLERATED 2. RD ENCOURAGES PATIENT TO FOLLOW DIABETES DIET EDUCATION ONCE SHE LEAVES THE HOSPITAL. 3. RD TO FOLLOW-UP 7 DAYS, LOW RISK CLAIR [address]ORT[address] RD
[2023-05-22 16:00] VITALS: BP 118/79; PULSE 95; RESP 17; TEMP 98.3; O2SAT 94
--- NOTE | 2023-05-22 19:57 | NUR ---
ENDORSED TO MACHINIST GENERAL NURSE FOR CONTINUITY OF CARE. PT TABLE AT THIS TIME.
[2023-05-22 20:00] VITALS: BP 123/84; PULSE 98; RESP 16; RESP 17; TEMP 97.3; O2SAT 96; O2SAT 98
[2023-05-22] MEDS ORDERED: INSULIN LANTUS 100 UNITS/ML 10 ML VIAL SUBQ SCH (21:25)
[2023-05-23 04:00] VITALS: BP 126/79; PULSE 86; RESP 17; TEMP 97.9; O2SAT 96
[2023-05-23] MEDS: HYDROcodone/APAP 5/325 MG 1 TAB TAB PO PRN ×2 (04:55→08:17)
[2023-05-23] MEDS: BLOOD GLUCOSE MONITORING 1 DEV DEV FS SCH (06:48)
[2023-05-23 07:39] VITALS: RESP 19; O2SAT 99
[2023-05-23] MEDS: GABAPENTIN 300 MG CAP PO SCH (08:17)
[2023-05-23] MEDS: ENOXAPARIN 40 MG/0.4 ML SYR SUBQ SCH (08:18)
[2023-05-23] MEDS ORDERED: INSU100S22 SUBQ (08:33)
[2023-05-23 09:12] VITALS: BP 128/75; PULSE 68; RESP 20; TEMP 97.1
== END 2023-05-23 11:16 | disposition home or self-care (01) | DRG 48 ==
LOC: MED 17:19 → MMU 22:24
PROVIDERS: ADMIT Internal Medicine; ATTEND Internal Medicine
DX: E11.40 Type 2 diabetes mellitus with diabetic neuropathy, unspecified (principal); R65.10 Systemic inflammatory response syndrome (SIRS) of non-infectious origin without acute organ dysfunction; E11.65 Type 2 diabetes mellitus with hyperglycemia; R71.0 Precipitous drop in hematocrit; Z80.9 Family history of malignant neoplasm, unspecified; Z83.3 Family history of diabetes mellitus
CPT/HCPCS: 36415; 80053; 82948; 85025; 87081; 96361; 96372; 96374; 96375; 99285; J1650; J1815; J1885

== ENCOUNTER 2023-12-11 11:37 | Emergency (ER) | payer OTHER ==
[~2023-12-11] VITALS: Ht 165.1 cm; Wt 57.6 kg
[~2023-12-11 11:37] MED LIST changes: -CEFU500T73 PO; -GABA300C PO; -TRAM-748 PO
[2023-12-11 11:44] VITALS: BP 145/96; PULSE 113; RESP 18; TEMP 97.3; O2SAT 100
[2023-12-11] MEDS ORDERED: DICL100G32 TP (13:38)
[2023-12-11] MEDS ORDERED: NAPR-1704 PO (13:38)
[2023-12-11] MEDS: KETOROLAC 30 MG/ML VIAL IM ONE (13:54)
== END 2023-12-11 13:55 | disposition home or self-care (01) ==
LOC: MED 11:37
DX: S80.02XA Contusion of left knee, initial encounter (principal); E11.9 Type 2 diabetes mellitus without complications; Z79.899 Other long term (current) drug therapy; Z79.4 Long term (current) use of insulin; X58.XXXA Exposure to other specified factors, initial encounter; Y92.89 Other specified places as the place of occurrence of the external cause; Y93.89 Activity, other specified; Y99.8 Other external cause status
CPT/HCPCS: 73562; 81025; 96372; 99283; J1885

== ENCOUNTER 2024-01-21 22:32 | Emergency (ER) | payer OTHER ==
[~2024-01-21] VITALS: Ht 165.1 cm; Wt 56.7 kg
[~2024-01-21 22:32] MED LIST changes: +DICL100G32 TP; +NAPR-1704 PO
[2024-01-21 22:40] VITALS: BP 123/78; PULSE 102; RESP 19; TEMP 98; O2SAT 96
[2024-01-21 22:43] VITALS: O2SAT 96
[2024-01-21] MEDS: MORPHINE SULFATE 4 MG/ML SYR IM ONE (23:34)
[2024-01-22] MEDS: INSULIN LISPRO 100 UNITS/ML VIAL SUBQ ONE (00:23)
== END 2024-01-22 00:42 | disposition home or self-care (01) ==
LOC: MED 22:32
DX: E11.42 Type 2 diabetes mellitus with diabetic polyneuropathy (principal); Z79.4 Long term (current) use of insulin; Z79.899 Other long term (current) drug therapy
CPT/HCPCS: 82948; 96372; 99284; J1815; J2270